=== PATIENT | male | born 1960 | race Caucasian/White ===

== ENCOUNTER 2018-08-28 19:45 | Emergency (ER) | payer BC ==
[~2018-08-28] VITALS: Ht 182.9 cm; Wt 109.1 kg
[2018-08-28] MEDS ORDERED: HYDROcodone/acetaminophen 5mg/325mg tablet PO ONE (20:25)
[2018-08-28] MEDS ORDERED: DICL50TA8 PO (20:26)
[2018-08-28 21:06] VITALS: BP 162/103
== END 2018-08-28 21:07 | disposition home or self-care (01) ==
LOC: ER 19:46
DX: S63.502A Unspecified sprain of left wrist, initial encounter (principal); Z79.899 Other long term (current) drug therapy; X58.XXXA Exposure to other specified factors, initial encounter; Y93.53 Activity, golf; Y92.89 Other specified places as the place of occurrence of the external cause; Y99.8 Other external cause status
CPT/HCPCS: 29125; 73110; 99284

== ENCOUNTER 2019-12-16 12:43 | Emergency (ER) | payer BC ==
[~2019-12-16] VITALS: Ht 182.9 cm; Wt 118.2 kg
[~2019-12-16 12:43] MED LIST: DICL50TA8 PO
[2019-12-16] MEDS ORDERED: LIDOcaine 1% W/epiNEPHrine 1:200,000 10ml vial IJ ONE (13:40)
[2019-12-16] MEDS ORDERED: mupirocin 2% ointment 22GM TP ONE (13:40)
[2019-12-16 13:51] VITALS: BP 118/91
[2019-12-16] MEDS ORDERED: LIDOcaine 1% W/epiNEPHrine 1:200,000 10ml vial IJ STA (14:27)
[2019-12-16] MEDS ORDERED: HYDR-4353 PO (14:56)
== END 2019-12-16 15:18 | disposition home or self-care (01) ==
LOC: ER 12:44
DX: S81.811A Laceration without foreign body, right lower leg, initial encounter (principal); M79.604 Pain in right leg; Z79.899 Other long term (current) drug therapy; W45.8XXA Other foreign body or object entering through skin, initial encounter; Y93.89 Activity, other specified; Y92.89 Other specified places as the place of occurrence of the external cause; Y99.8 Other external cause status
CPT/HCPCS: 12002; 99283